=== PATIENT | male | born 1970 | race Caucasian/White ===

== ENCOUNTER 2017-08-21 13:50 | Emergency (ER) | payer BC ==
[~2017-08-21] VITALS: Ht 188 cm; Wt 88.5 kg
[~2017-08-21 13:50] MED LIST: ACEASPCAF; BELSOMRA10 MG PO; BELSOMRA5 MG PO; CITA20 PO; Excedrin Extra1 EACH PO; HYDACE5 PO; IBUP800; PENVK500
[2017-08-21] MEDS ORDERED: Percocet 5-3251 EACH PO (15:54)
[2017-08-21] MEDS ORDERED: CEPH500 PO (15:54)
== END 2017-08-21 16:20 | disposition home or self-care (01) ==
LOC: ER 13:50
DX: S68.126A Partial traumatic metacarpophalangeal amputation of right little finger, initial encounter (principal); W26.8XXA Contact with other sharp object(s), not elsewhere classified, initial encounter; Z88.8 Allergy status to other drugs, medicaments and biological substances; Z79.899 Other long term (current) drug therapy; Z79.82 Long term (current) use of aspirin; F17.210 Nicotine dependence, cigarettes, uncomplicated
CPT/HCPCS: 11760; 29130; 73140; 90471; 90714; 99283

== ENCOUNTER 2025-01-17 17:17 | Inpatient (IN) | payer OTHER ==
[~2025-01-17] VITALS: Ht 190.5 cm; Wt 70.4 kg
[~2025-01-17 17:17] MED LIST changes: +CEPH500 PO; +Percocet 5-3251 EACH PO
[2025-01-17] MEDS ORDERED: Ipratropium/Albuterol SulF 2.5-0.5MG/3 ML Amp INH PRN (17:40)
[2025-01-17 18:10] LABS: BASOPHILS ABSOLUTE AUTO 0.06 K/mm3 (0.00-0.23); BASOPHILS PERCENT AUTO 1 % (0-2); EOSINOPHILS ABSOLUTE AUTO 0.10 K/mm3 (0.00-0.68); EOSINOPHILS PERCENT AUTO 1 % (0-6); Hematocrit 41.8 % (37.0-53.0); Hemoglobin 14.3 g/dL (13.5-17.5); IMMATURE GRAN ABSOLUTE AUTO 0.05 K/mm3 (0.00-0.10); IMMATURE GRAN PERCENT AUTO 1 % (0-1); LYMPHOCYTES ABSOLUTE AUTO 1.64 K/mm3 (0.84-5.20); LYMPHOCYTES PERCENT AUTO 15 % (21-46); MONOCYTES ABSOLUTE AUTO 0.88 K/mm3 (0.16-1.47); MONOCYTES PERCENT AUTO 8 % (4-13); Mean Corpuscular HGB Conc 34.2 g/dL (31.5-36.5); Mean Corpuscular Volume 95 fL (80-100); NEUTROPHILS ABSOLUTE AUTO 7.91 K/mm3 (1.96-9.15); NEUTROPHILS PERCENT AUTO 74 % (41-73); NRBC ABSOLUTE 0.00 K/mm3 (0.00-0.02); NRBC Auto 0.0 /100 WBC (0.0-0.2); Platelet Count 196 K/mm3 (150-400); RDW Coefficient Variation 12.9 % (11.7-14.2); RDW Standard Deviation 44.7 fL (35.1-46.3)
[2025-01-17 18:20] LABS: Alanine Aminotransfer (ALT/SGP 22.0 U/L (12-78); Albumin, Blood 3.5 g/dL (3.4-5.0); Albumin/Globulin Ratio 1.0 (0.8-1.8); Anion Gap 9.0 mmol/L (3-11); Aspartate Aminotrans (AST/SGOT 18.0 U/L (12-37); Bilirubin, Total 1.0 mg/dL (0.1-1.0); Blood Urea Nitrogen 12.0 mg/dL (8-24); CO2, Blood 30.0 mmol/L (21-32); Calcium, Blood 9.2 mg/dL (8.5-10.1); Chloride, Blood 103.0 mmol/L (98-108); Creatinine, Blood 0.67 mg/dL (0.60-1.20); Globulin, Blood 3.5 g/dL (2.2-4.0); Glucose, Blood 99.0 mg/dL (70-99); Potassium, Blood 3.8 mmol/L (3.5-5.5); Sodium, Blood 138.0 mmol/L (136-145); Total Protein, Blood 7.0 g/dL (6.4-8.2)
[2025-01-17] MEDS ORDERED: CefTRIAXone Sodium 2,000 MG in NS 100 ML IV ONE (18:35)
[2025-01-17] MEDS ORDERED: FLU VACC TS2025-26(6MOS UP)/PF 45 MCG/0.5 ML SYRINGE IM SCH (20:00)
[2025-01-17] MEDS ORDERED: Ondansetron HCl 2 MG / ML 2ML Vial IV PRN (20:00)
[2025-01-17] MEDS ORDERED: NS 1,000 ML IV SCH (20:00)
[2025-01-17] MEDS ORDERED: Albuterol 2.5 MG/3 ML VIAL INH PRN (20:00)
[2025-01-17] MEDS ORDERED: Ipratropium/Albuterol SulF 2.5-0.5MG/3 ML Amp INH SCH ×2 (20:00→23:17)
[2025-01-17 20:36] LABS: Magnesium, Blood 1.9 mg/dL (1.6-2.4)
[2025-01-17] MEDS ORDERED: Buspirone HCl15 MG PO (20:58)
[2025-01-17] MEDS ORDERED: Magnesium Sulf 2 GM/Water 50ML 50 ML IV ONE (22:00)
[2025-01-17 22:44] VITALS: BP 126/74
[2025-01-17] MEDS ORDERED: Cialis10 MG PO (23:03)
[2025-01-17 23:19] LABS: Influenza A/2009-H1 Not Detected (NOT DETECT); SARS-Cov-2 (COVID-19), BioFire Not Detected (NOT DETECT)
[2025-01-18 05:16] VITALS: BP 121/80
[2025-01-18 07:18] VITALS: BP 118/74
--- NOTE | 2025-01-18 07:53 | NUR ---
ADMIT/SHIFT SUMMARY: PT ARRIVES TO ROOM 338 FROM THE ER VIA GURNEY AT 2200. PT WAS ABLE TO STAND AND AMBULATE TO HIS BED. PT ORIENTED TO ROOM, STAFF AND CALL LIGHT. PT IS A&OX4, [place], BUT PLEASANT AND COOPERATIVE WITH CARE. VSS ON 3L OXYGEN VIA NC SPO2 94%. DENIES PAIN. TOLERATING A REGULAR DIET. INDEPENDENT IN ROOM/BR. VOIDING ADEQUATE AMOUNTS OF CLEAR, GIOVANY COLORED URINE. NO BM THIS SHIFT. PT DOES STATE THAT HIS BOWEL MOVEMENTS ARE LOOSE. PT IS NOT INTERESTED IN SMOKING CESSATION AT THIS TIME. PT ALSO STATES HE IS A DAILY DRINKER OF 6-12 BEERS NIGHTLY, LAST DRINK ON SUNDAY NIGHT. NO S/S OF ALCOHOL WITHDRAWAL AT THIS TIME. BED IN LOWEST POSITION, CALL LIGHT WITHIN REACH, CALLS APPROPRIATELY AND IS ABLE TO ADVOCATE NEEDS EFFECTIVELY. DROPLET PRECAUTIONS INITIATED FOR A POSITIVE RESULT OF RHINO VIRUS.
[2025-01-18] MEDS ORDERED: Enoxaparin 40 MG/0.4 ML SYR SC SCH (09:00)
[2025-01-18] MEDS ORDERED: LORazepam 2 MG/ML 1ML Injection IV PRN ×2 (10:30)
[2025-01-18 15:53] VITALS: BP 131/69
--- NOTE | 2025-01-18 17:36 | NUR ---
SHIFT SUMMARY: PT A&OX4, COOPERATIVE AND PLEASANT MOOD WITH MINIMAL INTERMITTENT ANXIETY; DECLINED ANXIOLYTIC PRN MEDS. PT DENIES ANY PAIN, DISCOMFORT, OR SOB WHEN AMBULATING. GAIT STEADY. PT HAS GOOD APPETITE AND COMMUNICATES NEEDS APPROPRIATELY. GIRLFRIEND AT BEDSIDE. NO ACUTE EVENTS TODAY. PT SITTING UP IN BED EATING DINNER AND WATCHING TV. CALL LIGHT WITHIN REACH.
[2025-01-18] MEDS ORDERED: CefTRIAXone Sodium 1,000 MG in NS 100 ML IV SCH (19:00)
[2025-01-18 19:49] VITALS: BP 125/61
[2025-01-19 05:31] VITALS: BP 123/55
[2025-01-19 05:48] LABS: BASOPHILS ABSOLUTE AUTO 0.02 K/mm3 (0.00-0.23); BASOPHILS PERCENT AUTO 0 % (0-2); EOSINOPHILS ABSOLUTE AUTO 0.00 K/mm3 (0.00-0.68); EOSINOPHILS PERCENT AUTO 0 % (0-6); Hematocrit 35.4 % (37.0-53.0); Hemoglobin 12.0 g/dL (13.5-17.5); IMMATURE GRAN ABSOLUTE AUTO 0.06 K/mm3 (0.00-0.10); IMMATURE GRAN PERCENT AUTO 0 % (0-1); LYMPHOCYTES ABSOLUTE AUTO 0.86 K/mm3 (0.84-5.20); LYMPHOCYTES PERCENT AUTO 6 % (21-46); MONOCYTES ABSOLUTE AUTO 0.58 K/mm3 (0.16-1.47); MONOCYTES PERCENT AUTO 4 % (4-13); Mean Corpuscular HGB Conc 33.9 g/dL (31.5-36.5); Mean Corpuscular Volume 95 fL (80-100); NEUTROPHILS ABSOLUTE AUTO 13.75 K/mm3 (1.96-9.15); NEUTROPHILS PERCENT AUTO 90 % (41-73); NRBC ABSOLUTE 0.00 K/mm3 (0.00-0.02); NRBC Auto 0.0 /100 WBC (0.0-0.2); Platelet Count 208 K/mm3 (150-400); RDW Coefficient Variation 13.2 % (11.7-14.2); RDW Standard Deviation 46.3 fL (35.1-46.3)
[2025-01-19 06:02] LABS: Anion Gap 7.0 mmol/L (3-11); Blood Urea Nitrogen 10.0 mg/dL (8-24); CO2, Blood 28.0 mmol/L (21-32); Calcium, Blood 8.8 mg/dL (8.5-10.1); Chloride, Blood 109.0 mmol/L (98-108); Creatinine, Blood 0.55 mg/dL (0.60-1.20); Glucose, Blood 148.0 mg/dL (70-99); Potassium, Blood 4.6 mmol/L (3.5-5.5); Sodium, Blood 139.0 mmol/L (136-145)
[2025-01-19 08:15] VITALS: BP 116/69
[2025-01-19] MEDS ORDERED: Multivitamins 1 Tab PO SCH (09:00)
[2025-01-19 16:18] VITALS: BP 125/77
--- NOTE | 2025-01-19 18:25 | NUR ---
END OF SHIFT PATIENT RESTING IN BED WITH FAMILY MEMBER AT BEDSIDE. PATIENT A&O4, ABLE TO MAKE NEEDS KNOWN, IND IN ROOM AND TO BATHROOM. AMBLUATES IN ROOM WITH AND WITHOUT OXYGEN WATCHING SATS ON CONTINIOUS PULSE OX. PATIENT AWARE OF NEED OF O2 PRN AND WITH WALKING. CIWA 12 AND UNDER TODAY, MEDICATED TO ORDER. POSSIBLE D/C TOMORROW WITH OXYGEN. HOME O2 EVAL DONE. NO OTHER CONCERNS FOR THIS SHIFT.
[2025-01-19 19:37] VITALS: BP 142/75
[2025-01-20 04:45] VITALS: BP 129/88
--- NOTE | 2025-01-20 06:41 | NUR ---
PT RESTED PEACEFULLY OVERNIGHT WITH NO ACUTE EVENTS. CIWA SCORES WERE 0 THROUGHOUT THE NIGHT. NO PRN MEDICATIONS WERE GIVEN. PT REMAINS INDEPENDENT IN THE ROOM, O2 SATS >92% ON 2LNC
[2025-01-20 07:39] VITALS: BP 137/89
[2025-01-20] MEDS ORDERED: CEFP200 PO (07:45)
[2025-01-20] MEDS ORDERED: GABA300 PO (07:46)
[2025-01-20] MEDS ORDERED: IPRAT-ALBUT 0.5-3 ML INH (07:47)
[2025-01-20] MEDS ORDERED: DELTASONE20 MG PO (07:47)
[2025-01-20] MEDS ORDERED: NICO21TP TOP (07:48)
[2025-01-20] MEDS ORDERED: MULVITA PO (07:48)
[2025-01-20] MEDS ORDERED: B-1100 MG PO (07:49)
[2025-01-20] MEDS ORDERED: ALBU90OI INH (07:52)
[2025-01-20] MEDS ORDERED: FLUTICASONE-SA1 EAC1 INH (07:52)
[2025-01-20] MEDS ORDERED: CHLO25 PO (11:28)
--- NOTE | 2025-01-20 17:07 | NUR ---
DISCHARGE NOTE PATIENT AT BEDSIDE WITH FAMILY MEMBER, NEW SCRIPT GIVEN BY DR SHAVER. PATIENT AND FAMILY MEMBER DISCUSSED DISCHARGE INSTRUCTIONS WITH NURSE, MEDICAITON PRESCRIPTIONS, OXYGEN SAFETY AND USEAGE. FOLLOW UP APPOINTMENTS DISCUSSED IN DETAIL. PATIENT VERBALIZED UNDERSTANDING, NO OTHER QUESTIONS. PATIENT AMBULATED OUT OF HOSPITAL.
== END 2025-01-20 16:58 | disposition home or self-care (01) | DRG 177 ==
LOC: ER 17:17 → MEDS 19:55
PROVIDERS: Nurse Practitioner Acute Care; Student in an Organized Health Care Education/Training Program; ADMIT Internal Medicine
DX: J15.69 Pneumonia due to other Gram-negative bacteria (principal); J96.01 Acute respiratory failure with hypoxia; J44.1 Chronic obstructive pulmonary disease with (acute) exacerbation; J44.0 Chronic obstructive pulmonary disease with (acute) lower respiratory infection; F10.239 Alcohol dependence with withdrawal, unspecified; F17.210 Nicotine dependence, cigarettes, uncomplicated; F41.9 Anxiety disorder, unspecified; F32.A Depression, unspecified; Z88.6 Allergy status to analgesic agent
CPT/HCPCS: 0202U; 36415; 71046; 80048; 80053; 83605; 83735; 84145; 85025; 87040; 93005; 93010; 94640; 94664; 94760; 94761; 94762; 96365; 96367; 99285-25; A9270; J0456; J0696; J1650; J2060; J2919; J3475; J7030; J7050